=== PATIENT | female | born 1965 | race Caucasian/White ===

== ENCOUNTER → 2017-03-06 | Outpatient (CLI) | payer BC ==
[~2017-03-06] MED LIST: CETI10TA84 PO; DIPH25CA5 PO; IBUP-1050 PO; LORA10CA2 PO; MULTTAB58 PO
--- NOTE | 2017-03-06 12:59 | DIAGNOSTIC IMAGING REPORT ---
DOUBLE CONTRAST UPPER GI SERIES CLINICAL HISTORY: Generalized abdominal pain. Hernia. COMPARISON STUDY: No priors. TECHNIQUE: A standard air contrast upper GI series was performed. Spot images of the esophagus and stomach were obtained in multiple obliquities both upright and prone. FINDINGS: The patient swallowed barium without difficulty. The esophagus is structurally normal without evidence of intrinsic or extrinsic mass. There is mild dysmotility in the distal esophagus. The esophageal mucosal pattern is normal. No gastroesophageal reflux was elicited by having the patient perform the Valsalva maneuver. The gastroesophageal junction distends normally. The stomach is normal in configuration and demonstrates normal distensibility. No mass or ulceration is identified. There was no evidence of gastritis. The duodenal bulb and sweep are unremarkable. Fluoroscopy time: 3.1 minutes. Fluoroscopic images: 19 IMPRESSION: Minimal esophageal dysmotility. Otherwise normal examination. Electronically signed by: Francis Mccabe M.D. 03/06/2017 12:57 PM Dictated Date/Time: 03/06/2017 12:56 PM
== END | disposition home or self-care (01) ==
LOC: C.ULTR 09:56
PROVIDERS: ATTEND Physician Assistant
DX: R10.13 Epigastric pain (principal)

== ENCOUNTER → 2017-06-26 | Day surgery (SDC) | payer BC ==
[2017-06-09 11:46] VITALS: BMI 24.0
[~2017-06-26] VITALS: Ht 170.2 cm; Wt 70.5 kg
[~2017-06-26] MED LIST changes: +BND25 PO; -DIPH25CA5 PO; +LIDOCAINE HCL 2% 2 ML VIAL (20MG/ML) ONE; +PROPOFOL IV EMULSION 10 MG/ML 20 ML VIAL IV ONE
[2017-06-26 09:17] VITALS: Ht 170.2 cm; Wt 70.5 kg
--- NOTE | 2017-06-26 10:01 | GI REPORT ---
Procedure Date: 06/26/2017 9:33 AM Procedure: Colonoscopy Indications: Screening for colorectal malignant neoplasm Medicines: Monitored Anesthesia Care Complications: No immediate complications. Estimated Blood Loss: Estimated blood loss: none. Procedure: Pre-Anesthesia Assessment: - Prior to the procedure, a History and Physical was performed, and patient medications and allergies were reviewed. The patient's tolerance of previous anesthesia was also reviewed. The risks and benefits of the procedure and the sedation options and risks were discussed with the patient. All questions were answered, and informed consent was obtained. Prior Anticoagulants: The patient has taken no previous anticoagulant or antiplatelet agents. ASA Grade Assessment: II - A patient with mild systemic disease. After reviewing the risks and benefits, the patient was deemed in satisfactory condition to undergo the procedure. After I obtained informed consent, the scope was passed under direct vision. Throughout the procedure, the patient's blood pressure, pulse, and oxygen saturations were monitored continuously. The On-site loaner was introduced through the anus and advanced to the cecum, identified by appendiceal orifice and ileocecal valve. The colonoscopy was performed without difficulty. The patient tolerated the procedure well. The quality of the bowel preparation was good. The ileocecal valve, appendiceal orifice, and rectum were photographed. Findings: A 5 mm polyp was found in the sigmoid colon. The polyp was sessile. The polyp was removed with a hot snare. Resection and retrieval were complete. Non-bleeding internal hemorrhoids were found during retroflexion. The hemorrhoids were small. Impression: - One 5 mm polyp in the sigmoid colon, removed with a hot snare. Resected and retrieved. - Non-bleeding internal hemorrhoids. Recommendation: - Resume previous diet. - Continue present medications. - Repeat colonoscopy for surveillance based on pathology results. - Return to primary care physician as previously scheduled. Ruddy Kamara DO 06/26/2017 10:01:10 AM This report has been signed electronically. Note Initiated On: 06/26/2017 9:33 AM I attest to the content of the Intraoperative Record and orders documented therein, exceptions below
--- NOTE | 2017-06-26 10:03 | Endo History and Physical ---
History & Physical Date of Service: Jun 26, 2017. Chief Complaint: SCREENING Referring Physician: DR TERAN History of Present Illness 51 yo CF who presents for screening colonoscopy. Past Surgical History Hx Cardiac Surgery: No Hx Internal Defibrillator: No Hx Pacemaker: No Hx Abdominal Surgery: Yes (TUBAL LIGATION, , UTERINE ABLATION) Hx of Implantable Prosthesis: No Hx Post-Op Nausea and Vomiting: Yes Hx Cancer Surgery: No Hx Thoracic Surgery: No Hx Orthopedic: Yes (RT SHOULDER RECON, LOW BACK SURGERY, RT WRIST GANGLION CYSTECTOMY) Hx Urinary Tract Surgery: No Family History None Social History Smoking Status: Never Smoker Hx Substance Use: No Hx Alcohol Use: No Allergies Coded Allergies: Latex1 -Allergic Contact Dermititis (Verified Allergy, Unknown, ITCHING, ) Nickel (Verified Allergy, Unknown, SWELLING AND SCARS WITH EXTENDED USE, ) Uncoded Allergies: NARCOTICS (Allergy, Unknown, GI UPSET, 06/09/17) Current Medications Reported Home Medications Medications Dose Route/Sig Max Daily Dose Days Date Category Multivitamin (Multiple Vitamin) 1 Tab Tab 1 Tab PO QAM 06/09/17 Reported Claritin (Loratadine) 10 Mg Cap 10 Mg PO DAILY PRN 06/09/17 Reported Zyrtec (Cetirizine HCl) 10 Mg Tab 10 Mg PO DAILY PRN 06/09/17 Reported Benadryl (Diphenhydramine Hcl) 25 Mg Cap 25 Mg PO Q4H PRN 06/09/17 Reported Advil (Ibuprofen) 200 Mg Tab 200-600 Mg PO Q4H PRN 06/09/17 Reported Vital Signs Weight (Kilograms): 70.45 Height (Feet): 5 Height (Inches): 7 Date Time Temp Pulse Resp B/P (MAP) Pulse Ox O2 Delivery O2 Flow Rate FiO2 06/26/17 10:01 77 20 114/64 (81) 98 Room Air 06/26/17 09:26 36.9 85 20 119/80 (93) 98 Room Air Physical Exam General Appearance: WD/WN, no apparent distress Respiratory/Chest: Auscultation: breath sounds normal Cardiovascular: Heart Auscultation: RRR Abdomen: Bowel Sounds: normal Inspection & Palpation: soft, non-distended, no tenderness, guarding & rebound Assessment and Plan Assessment: 51 yo CF who presents for screening colonoscopy. Plan: Proceed with colonoscopy.
--- NOTE | 2017-06-26 10:04 | Discharge Instructions ---
Endoscopy Patient Instructions Date / Procedure(s) Performed Jun 26, 2017. Colonoscopy Allergy Information Coded Allergies: Latex1 -Allergic Contact Dermititis (Verified Allergy, Unknown, ITCHING, ) Nickel (Verified Allergy, Unknown, SWELLING AND SCARS WITH EXTENDED USE, ) Uncoded Allergies: NARCOTICS (Allergy, Unknown, GI UPSET, 06/09/17) Discharge Date / Findings Jun 26, 2017. Colon polyp Internal hemorrhoids Medication Instructions OK to resume all medications today as prescribed Reported Home Medications Medications Dose Route/Sig Max Daily Dose Days Date Category Multivitamin (Multiple Vitamin) 1 Tab Tab 1 Tab PO QAM 06/09/17 Reported Claritin (Loratadine) 10 Mg Cap 10 Mg PO DAILY PRN 06/09/17 Reported Zyrtec (Cetirizine HCl) 10 Mg Tab 10 Mg PO DAILY PRN 06/09/17 Reported Benadryl (Diphenhydramine Hcl) 25 Mg Cap 25 Mg PO Q4H PRN 06/09/17 Reported Advil (Ibuprofen) 200 Mg Tab 200-600 Mg PO Q4H PRN 06/09/17 Reported Provider Instructions Activity Restrictions - No exercising or heavy lifting for 24 hours. - Do not drink alcohol the day of the procedure. - Do not drive a car or operate machinery until the day after the procedure. - Do not make any important decisions or sign important papers in 24 hours after the procedure. Following Day: - Return to full activity which may include returning to work/school. Diet Start your diet with liquids and light foods (jello, soup, juice, toast). Then eat your usual diet if not nauseated. Treatment For Common After Affects For mild abdominal pain, bloating, or excessive gas: - Rest - Eat lightly - Lie on right side Follow-Up Information Follow-up with DR TERAN as scheduled Anesthesia Information What You Should Know You have had a procedure that required some medicine to reduce anxiety and discomfort. This treatment is called moderate sedation. After receiving the treatment, you may be sleepy, but you will be able to breathe on your own. The effects of the treatment may last for several hours. Follow these instructions along with Activity/Diet recommendations noted above: * Do NOT do anything where dizziness or clumsiness would be dangerous. * Rest quietly at home today, then you can be up and about tomorrow. * Have a responsible person stay with you the rest of today. * You may have had an I.V. today. If so, you may take the dressing off later today. Recommendations Call your doctor if: * Trouble breathing * Continuous vomiting for more than 24 hours * Temperature above 101 degrees * Severe abdominal pain or bloating * Pain not relieved by pain medicine ordered * There is increased drainage or redness from any incision * A large amount of rectal bleeding greater than 2-3 tablespoons. (If you had a polyp/s removed or have hemorrhoids, a small amount of blood - from the rectum is to be expected.) * You have any unanswered questions or concerns. IN THE EVENT OF A SERIOUS EMERGENCY, GO TO THE NEAREST EMERGENCY ROOM Your discharge instructions were prepared by provider Ruddy Kamara. Patient Instructions Signature Page Louise Serrano Patient (or Guardian) Signature/Date: I have read and understand the instructions given to me by my caregivers. Caregiver/RN/Doctor Signature/Date: The above-named patient and/or guardian has received patient instructions on this date. + Original Patient Signature Page (only) stays with chart. Please make copy for patient.
--- NOTE | 2017-06-26 10:32 | Anesthesiology Progress Note ---
Anesthesia Post Op Note Date & Time Jun 26, 2017 at 10:32 Vital Signs Pain Intensity: 0 Vital Signs Past 12 Hours Date Time Temp Pulse Resp B/P (MAP) Pulse Ox O2 Delivery O2 Flow Rate FiO2 06/26/17 10:17 69 20 111/75 (87) 100 Room Air 06/26/17 10:01 77 20 114/64 (81) 98 Room Air 06/26/17 09:26 36.9 85 20 119/80 (93) 98 Room Air Notes Mental Status: alert / awake / arousable, participated in evaluation Pt Amnestic to Procedure: Yes Nausea / Vomiting: adequately controlled Pain: adequately controlled Airway Patency, RR, SpO2: stable & adequate BP & HR: stable & adequate Hydration State: stable & adequate Anesthetic Complications: no major complications apparent
[2017-06-26 10:38] VITALS: BP 118/74; PULSE 71; O2SAT 100
== END | disposition home or self-care (01) ==
LOC: C.GI 08:58
PROVIDERS: ATTEND Internal Medicine
DX: Z12.11 Encounter for screening for malignant neoplasm of colon (principal); D12.5 Benign neoplasm of sigmoid colon; K64.8 Other hemorrhoids; Z98.51 Tubal ligation status; K21.9 Gastro-esophageal reflux disease without esophagitis